=== PATIENT | male | born 1965 | race Caucasian/White ===

== ENCOUNTER 2017-11-13 16:24 | Emergency (ER) | payer OTHER ==
--- NOTE | 2017-11-13 16:25 | ED Physician Documentation ---
General Adult - HISTORIAN Historian: patient - HPI Stated Complaint: right hand injury Chief Complaint: Hand Injury Onset: hours (1) Timing: still present Severity: mild Further Comments: yes (right hand 5th digit with open laceration . No issue with ROM, or sensation, pulse +) Last known Well Code/Unknown Code: Unknown - ROS CONST: no problems MS/SKIN/LYMPH: none NEURO/PSYCH: denies: headache, fainting, dizziness - PAST HX Past History: none Other History: none Surgeries/Procedures: none Immunizations: UTD - SOCIAL HX Smoking History: cigarettes Alcohol Use: heavy Drug Use: none - FAMILY HX Family History: No - REVIEWED ASSESSMENTS Nursing Assessment Reviewed: Yes Vitals Reviewed: Yes ED Results Lab/Radiology - Radiology Radiology Impressions: Examination: Plain film right hand History: Hand discomfort Comparison exams: None available Findings: 3 views the right hand demonstrates osteopenia. Articular degenerative spurring. 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 Linear lucency distal phalanx 5th digit. No dislocation. No soft tissue abnormality. Impression: Osteopenia. Articular degenerative changes. Fracture distal phalanx 5th digit. Electronically signed on Nov 13, 2017 5:03:52 PM CDT by: Alfredo Moon - Orders Orders: 1712: area cleaned. No areas to approximate. Area cleaned well . Will apply dressing and splint for fracture. DG General Adult Physical Exam - PHYSICAL EXAM GENERAL APPEARANCE: no distress EENT: eye inspection normal NECK: normal inspection RESPIRATORY: no resp distress, chest non-tender, breath sounds normal CVS: reg rate & rhythm, heart sounds normal, equal pulses, no murmur ABDOMEN: soft SKIN: warm/dry, normal color EXTREMITIES: non-tender, other (right hand with laceration on 5th digit. Pulses on hand +, sensation + FROM +) NEURO: oriented X3, CN's nml as tested, motor nml, sensation nml, mood/affect nml Discharge Clincal Impression: Laceration Fracture of distal phalanx of finger Qualifiers: Encounter type: initial encounter Finger: little finger Fracture type: closed Fracture alignment: nondisplaced Laterality: right Qualified Code(s): S62.666A - Nondisplaced fracture of distal phalanx of right little finger, initial encounter for closed fracture Referrals: Primary Doctor,No [Primary Care Provider] - 2 Days Comments: 1. Keep area clean and dry 2. Bactrim take 1 by mouth BID x 10days 3. Keep splint on 4. Tylenol or Ibuprofen as needed for pain 5. See PCP in 2-4 days 6. Return to ER for any concerns Condition: Stable Disposition: 01 HOME, SELF-CARE Decision to Admit: NO Date of Decison to Admit: 11/13/17 Decision Time: 17:14
[2017-11-13] MEDS ORDERED: NEOMYCIN SU/BACITRAC ZN/POLY 1 EACH OINT.PACK TP ONE (17:10)
[2017-11-13 17:31] VITALS: BP 134/90
--- NOTE | 2017-11-13 18:35 | Diagnostic Imaging Report ---
LUIS ANAYA [facility] [address] [facility], [facility] [address] [address] Report Submission Date: Nov 13, 2017 5:03:52 PM CDT Patient Study Name: ELBA VEGA Date: Nov 13, 2017 4:44:00 PM CDT Modality Type: DX Gender: M Description: UPPER EXTREMITY : 61 Institution: [facility] Physician: LUIS ANAYA Examination: Plain film right hand History: Hand discomfort Comparison exams: None available Findings: 3 views the right hand demonstrates osteopenia. Articular degenerative spurring. 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 Linear lucency distal phalanx 5th digit. No dislocation. No soft tissue abnormality. Impression: Osteopenia. Articular degenerative changes. Fracture distal phalanx 5th digit. Electronically signed on Nov 13, 2017 5:03:52 PM CDT by: Alfredo TUCKER
== END 2017-11-13 17:25 | disposition home or self-care (01) ==
LOC: ED 16:24
DX: S62.666A Nondisplaced fracture of distal phalanx of right little finger, initial encounter for closed fracture (principal); X58.XXXA Exposure to other specified factors, initial encounter; Y93.89 Activity, other specified; Y92.9 Unspecified place or not applicable; Y99.9 Unspecified external cause status
CPT/HCPCS: 73130; 99282; 99283